=== PATIENT | female | born 1995 | race Caucasian/White ===

== ENCOUNTER → 2017-07-25 08:43 | Outpatient (CLI) | payer BC, SELFPAY ==
--- NOTE | 2017-07-25 08:51 | RAD_ITS ---
STUDY: AIR-CONTRAST UPPER GI SERIES AND SMALL BOWEL FOLLOW-THROUGH EXAMINATION. REASON FOR EXAM: Female, 21 years old. Two-year history of lower abdominal pain and diarrhea. FLUOROSCOPY TIME (if supplied): (0:45) minutes/seconds TECHNIQUE: The patient ingested barium. Multiple images of the esophagus, stomach and duodenum were obtained. Following this, a small bowel follow-through examination was performed. COMPARISON: None. FINDINGS: The esophagus is unremarkable. No mass lesion is seen. There is no evidence of gastroesophageal reflux. The stomach and duodenum are unremarkable. There is no evidence of ulceration. Small bowel follow-through examination was then performed. The transit time is normal. Fecal material is seen in the colon. There is mucosal thickening of the terminal ileum with tiny ulcerations suggestive of Crohn's disease. Clinical correlation is recommended. RAD/Upper GI/w Small Bowel IMPRESSION: Findings suggestive of Crohn's disease involving the terminal ileum. Electronically Signed: Kaz Steele MD at 14:46 EDT Tel [phone], Service support ,
== END ==
PROVIDERS: Family Provider Nurse Practitioner Adult Health; PCP Nurse Practitioner Adult Health; Visit Provider Nurse Practitioner Adult Health
DX: K30 Functional dyspepsia (principal)
CPT/HCPCS: 74249